=== PATIENT | male | born 1950 | race Caucasian/White ===

== ENCOUNTER 2019-05-23 19:43 | Emergency (ER) | payer OTHER, MEDICARE ==
[2019-05-23 19:52] VITALS: BP 135/66; PULSE 75; TEMP 97.6; BMI 36.6
[2019-05-23 23:16] LABS: EPITHELIAL CELLS FEW /hpf
--- NOTE | 2019-05-25 08:04 | PDOC ---
Documentation entered by Akosua Dia SCRIBE, acting as scribe for Isidro Krueger MD. Isidro Krueger MD: This documentation has been prepared by the [place], SCRIBE, under my direction and personally reviewed by me in its entirety. I confirm that the documentation accurately reflects all work, treatment, procedures, and medical decision making performed by me. History of Present Illness - General Chief Complaint: Urinary Problem Stated Complaint: URINARY RETENTION History Source: Patient Exam Limitations: No Limitations - History of Present Illness Initial Comments: 05/23/19 20:41 The patient is a 68-year-old male with a past medical history significant for HTN, enlarged prostate, borderline DM, disc herniation (on Oxycodone), s/p bilateral knee surgery (05/04) who presents to the emergency department with urinary retention. The patient is s/p bilateral knee surgery on 05/04. The patient reports he left the hospital with a urinary catheter in, which was removed earlier today at 10:30 am at a urologist's office (patient isn't sure of the doctor's name). The patient reports since conteh removal, he hasn't been able to urinate. The patient reports he's been drinking a lot of water and reports some dribbling and abdominal distention. Allergies: Sulfa Social history: Former smoker. Surgical history: Cholecystectomy (May 2018). Family history: Mom: [place] and Brother: [place] (age 39). PCP: Dr. Linnea Owens Past History - Past Medical History Allergies/Adverse Reactions: Allergies Allergy/AdvReac Type Severity Reaction Status Date / Time Sulfa (Sulfonamide Allergy Intermediate Itching Verified 05/23/19 19:46 Antibiotics) Home Medications: Ambulatory Orders Atenolol [Tenormin] 50 mg PO DAILY 11/08/18 Cholecalciferol (Vitamin D3) [Vitamin D3 -] 10,000 units PO DAILY 11/08/18 Furosemide [Lasix -] 40 mg PO DAILY 11/08/18 Lisinopril [Prinivil] 10 500s OD DAILY 11/08/18 Multivitamin [Multiple Vitamins] 1 tab PO DAILY 11/08/18 [place]-3/Dha/Epa/Fish Oil [[place] 3 500 Softgel] 2 tab PO DAILY 11/08/18 Oxycodone HCl/Acetaminophen [Oxycodone-Acetaminophen 10-325] 1 tab PO Q8H 11/08/18 Anemia: No Asthma: No Cancer: No Cardiac Disorders: No CVA: No COPD: No CHF: No Dementia: No Diabetes: No GI Disorders: No Disorders: No HTN: Yes Hypercholesterolemia: Yes Liver Disease: No Seizures: No Thyroid Disease: No - Psycho Social/Smoking Cessation Hx Smoking History: Former smoker Have you smoked in the past 12 months: No Review of Systems - Review of Systems Able to Perform ROS?: Yes Comments:: 05/23/19 20:42 CONSTITUTIONAL: Absent: fever, no chills, no fatigue EYES: Absent: visual changes ENT: Absent: ear pain, no sore throat CARDIOVASCULAR: Absent: chest pain, no palpitations RESPIRATORY: Absent: cough, no SOB GI: Absent: abdominal pain, no nausea, no vomiting, no constipation, no diarrhea GENITOURINARY:+Urinary retention. Absent: dysuria, no frequency, no hematuria MUSKULOSKELETAL: Absent: back pain, no arthralgia, no myalgia SKIN: Absent: rash NEURO: Absent: headache *Physical Exam - Physical Exam 05/23/19 20:42 GENERAL: Well-appearing, well-nourished. No apparent distress. HEENT: Normocephalic, atraumatic. PERRL, EOM intact. CARDIOVASCULAR: Normal S1, S2. Regular rate and rhythm. PULMONARY: Clear to auscultation bilaterally. ABDOMEN: +suprapubic tenderness without guarding or rebound, distended bladder to the umbilicus by percussion, no urethral lesion or inflammation. Soft, non-distended, no other tenderness.. EXTREMITIES: Normal ROM in all four extremities. No gross deformities. SKIN: Warm, dry. No rash NEUROLOGICAL: No focal neurological deficits. 05/25/19 08:02 Medical Decision Making - Medical Decision Making 05/25/19 08:03 Procedure note: Insertion of Conteh catheter A 16-gauge Conteh was passed without difficulty, over 1000 cc of clear urine was obtained. Patient symptoms were resolved. He felt much more comfortable, no residual pain. Abdomen was soft and nontender. Bladder was decompressed by percussion. Patient was discharged after instructions on care of his Conteh and will follow- up with his urologist tomorrow. Fully ambulatory and without pain or other discomfort Discharge - Discharge Information Problems reviewed: Yes Clinical Impression/Diagnosis: Urinary retention Condition: Improved Disposition: HOME - Admission No - Follow up/Referral Referrals: Bandar Owens MD [Primary Care Provider] - - Patient Discharge Instructions Patient Printed Discharge Instructions: How to Care for Your Conteh Catheter -- Male Additional Instructions: See your urologist for follow-up within 3 days. Catheter care as directed. Return to ER immediately if there is fever, abdominal or back pain. - Post Discharge Activity
== END 2019-05-23 21:26 | disposition home or self-care (01) ==
LOC: SUPCPDRO 19:43 → FER 19:43
PROC: 0T9B70Z Drainage of Bladder with Drainage Device, Via Natural or Artificial Opening (ICD-10-PCS; principal; 2019-05-23)
DX: R33.9 Retention of urine, unspecified (principal); R10.30 Lower abdominal pain, unspecified; Z88.2 Allergy status to sulfonamides; Z87.891 Personal history of nicotine dependence
CPT/HCPCS: 81003; 81015; 99283-25

== ENCOUNTER 2019-12-16 02:47 | Emergency (ER) | payer OTHER, MEDICARE ==
[2019-12-16 02:55] VITALS: BP 125/82; PULSE 83; TEMP 97.7; BMI 36.8
--- NOTE | 2019-12-16 03:00 | PDOC ---
History of Present Illness - General Chief Complaint: Laceration Stated Complaint: HEAD LAC Time Seen by Provider: 12/16/19 02:50 - History of Present Illness Initial Comments: 12/16/19 04:02 This 69-year-old man with a past medical history significant for HTN, enlarged prostate, borderline DM, disc herniation (on Oxycodone), s/p bilateral knee surgery (05/04/2019) presents with head injury sustained just prior to presentation. Patient states that he was waxing his car in his garage when he fell asleep in a chair. When he arose to wipe off the wax, he did not realize his legs had "fallen asleep" and he fell striking left side of his head against a shelf. He did not lose consciousness but he fell to the floor, falling onto a pile of towels (stating that his left shoulder absorbed most of the impact). He was able to get up on his own. He sustained to open wounds of the scalp. He is complaining of generalized headache and neck pain. He has no nausea/vomiting, difficulty with vision or balance; there has been no extremity weakness or facial droop. He is able to speak clearly and has had no word recall issues. Patient is unsure when his last tetanus prophylaxis was given Medications as noted below Allergy: Sulfa Past History - Medical History Allergies/Adverse Reactions: Allergies Allergy/AdvReac Type Severity Reaction Status Date / Time Sulfa (Sulfonamide Allergy Intermediate Itching Verified 05/23/19 19:46 Antibiotics) Home Medications: Ambulatory Orders Atenolol [Tenormin] 50 mg PO DAILY 11/08/18 Cholecalciferol (Vitamin D3) [Vitamin D3 -] 10,000 units PO DAILY 11/08/18 Furosemide [Lasix -] 40 mg PO DAILY 11/08/18 Lisinopril [Prinivil] 10 500s OD DAILY 11/08/18 Multivitamin [Multiple Vitamins] 1 tab PO DAILY 11/08/18 [place]-3/Dha/Epa/Fish Oil [[place] 3 500 Softgel] 2 tab PO DAILY 11/08/18 Oxycodone HCl/Acetaminophen [Oxycodone-Acetaminophen 10-325] 1 tab PO Q8H 11/08/18 Anemia: No Asthma: No Cancer: No Cardiac Disorders: No CVA: No COPD: No CHF: No Dementia: No Diabetes: No GI Disorders: No Disorders: No HTN: Yes Hypercholesterolemia: Yes Liver Disease: No Seizures: No Thyroid Disease: No - Surgical History Cholecystectomy: Yes - Psycho-Social/Smoking History Smoking History: Never smoked Have you smoked in the past 12 months: No If you are a former smoker, when did you quit?: 2 YEARS *Physical Exam - Vital Signs Last Vital Signs Temp Pulse Resp BP Pulse Ox 97.7 F 83 16 125/82 100 12/16/19 02:49 12/16/19 02:49 12/16/19 02:49 12/16/19 02:49 12/16/19 02:49 - Physical Exam GENERAL: Adult male, alert and oriented x3, no acute distress HEAD: Tender, erythematous, mildly edematous areas of the left frontotemporal scalp Nonbleeding, shallow flap type laceration, 3 cm left temporal scalp Nonbleeding partial skin avulsion, 2 cm mid upper forehead EYES: PERRLA, EOMI, pupils equal, 2 mm and sluggishly reactive sclera anicteric, conjunctiva clear. ENT: Ears normal, no hemotympanum, no hurst sign, nares patent, oropharynx clear without exudates. Dry mucous membranes. NECK: Normal range of motion, supple without lymphadenopathy, JVD, or masses. Moderately tender midline throughout LUNGS: Breath sounds equal, clear to auscultation bilaterally. No wheezes, and no crackles. HEART:Regular rate and rhythm, normal S1 and S2 without murmur, rub or gallop. ABDOMEN:.normal bowel sounds No guarding,tenderness or rebound.No masses No distention. EXTREMITIES: Normal range of motion, no edema. No clubbing or cyanosis. No erythema, or tenderness. NEUROLOGICAL: Cranial nerves II through XII grossly intact. Normal speech. No focal neurological deficits. MUSCULOSKELETAL: Back non-tender to palpation, no CVA tenderness SKIN: Warm, Dry, normal turgor, no rashes or lesions noted. Medical Decision Making - Medical Decision Making Scalp abrasions/shallow lacerations cleansed using sterile normal saline. Wounds covered with bacitracin ointment Noncontrast head CT and noncontrast cervical spine CT ordered to evaluate for acute injury. Preliminary interpretation by Imaging installation drafter: 1-noncontrast head CT: No evidence of fracture; no evidence of intracranial bleeding, contusions or other acute injury 2-cervical spine CT: No evidence of fracture or dislocation of vertebral body; incidental finding of right thyroid nodule Results discussed with the patient. He has been advised to avoid strenuous activity for the next 24 hours and to keep his head elevated as much as possible. She use Tylenol as needed for pain for the first 24 hours; after that, he can use NSAIDs as well as Tylenol. The patient should use Neosporin or bacitracin ointment to the scalp wounds twice a day for the next 5 days. Note was made of the incidental finding of the right thyroid nodule. No previous history of thyroid mass in this patient or in his family. He has been strongly advised to follow-up with his PMD, within the next 5 days. Copy of the preliminary reports have been given to the patient He should return to the emergency room if he has persistent severe headache or if he develops nausea/vomiting or acute neurologic deficit Discharge - Discharge Information Problems reviewed: Yes Clinical Impression/Diagnosis: Thyroid nodule Scalp contusion Qualifiers: Encounter type: initial encounter Qualified Code(s): S00.03XA - Contusion of scalp, initial encounter Scalp abrasion Qualifiers: Encounter type: initial encounter Qualified Code(s): S00.01XA - Abrasion of scalp, initial encounter Neck strain Qualifiers: Encounter type: initial encounter Qualified Code(s): S16.1XXA - Strain of muscle, fascia and tendon at neck level, initial encounter Condition: Stable Disposition: HOME - Follow up/Referral Referrals: Bandar Owens MD [Primary Care Provider] - - Patient Discharge Instructions Patient Printed Discharge Instructions: Closed Head Injury Additional Instructions: Keep head elevated as much as possible over the next few days Bacitracin/Neosporin ointment to scalp wounds twice daily for the next 5 days Tylenol for pain for the next 24 hours then can use Motrin or Aleve as well as Tylenol No strenuous activity for the next 24 hours Return to ER if you have severe, persistent headache or experience nausea/vomiting Follow-up with Dr. Owens within the next 3 to 4 days - Post Discharge Activity
[2019-12-16] MEDS ORDERED: DIPHTH,PERTUSS(ACELL),TET 0.5 ML DISP.SYRIN IM ONE (03:38)
== END 2019-12-16 05:39 | disposition home or self-care (01) ==
LOC: FER 02:47
PROC: 3E0233Z Introduction of Anti-inflammatory into Muscle, Percutaneous Approach (ICD-10-PCS; principal; 2019-12-16)
DX: S00.03XA Contusion of scalp, initial encounter (principal); S00.01XA Abrasion of scalp, initial encounter; S16.1XXA Strain of muscle, fascia and tendon at neck level, initial encounter
CPT/HCPCS: 70450-TC; 72125-TC; 90715; 99284-25

== ENCOUNTER 2020-01-30 08:59 | Day surgery (SDC) | payer OTHER, MEDICARE ==
[2020-01-30] MEDS: TROPICAMIDE 1% OPHTH SOLN 15 ML BOTTLE ONE ×3 (09:50→10:00)
[2020-01-30] MEDS: CIPROFLOXACIN 0.3% EYE DROPS 5 ML BOTTLE ONE ×3 (09:50→10:00)
[2020-01-30] MEDS: CYCLOPENTOLATE 2% OPHTH SOLN 2 ML BOTTLE ONE ×3 (09:50→10:00)
[2020-01-30] MEDS: PHENYLEPHRINE 2.5% OPHTH SOLN 15 ML BOTTLE ONE ×3 (09:50→10:00)
[2020-01-30 09:52] VITALS: BMI 38.0
[2020-01-30] MEDS ORDERED: CARBACHOL 0.01% INTRA-OCULAR 1.5 ML VIAL ONE (11:20)
[2020-01-30] MEDS ORDERED: TETRACAINE 0.5% OPHTH SOLN 2 ML BOTTLE ONE (11:20)
[2020-01-30] MEDS ORDERED: BSS (NA/CA/MG/K) BALANCED SALT SOLUTION OPHTH SOLN 15 ML BOTTLE ONE (11:20)
[2020-01-30] MEDS ORDERED: NEO/POLYMYX B SULF/DEXAMETH OPHTHALMIC 5ML BOTTLE ONE (11:20)
[2020-01-30] MEDS ORDERED: LIDOCAINE 1% P/F 10 MG/ML VIAL ONE (11:20)
[2020-01-30] MEDS ORDERED: MIDAZOLAM HCL 2 MG/2 ML SINGLE DOSE VIAL ONE (11:30)
[2020-01-30 13:04] VITALS: TEMP 97.8
[2020-01-30 13:06] VITALS: BP 114/63; PULSE 64
== END 2020-01-30 12:40 | disposition home or self-care (01) ==
LOC: FASU 08:59
PROVIDERS: ATTEND Ophthalmology
PROC: 08RJ3JZ Replacement of Right Lens with Synthetic Substitute, Percutaneous Approach (ICD-10-PCS; principal; 2020-01-30 11:38)
DX: H26.8 Other specified cataract (principal)

== ENCOUNTER 2020-02-13 08:06 | Day surgery (SDC) | payer OTHER, MEDICARE ==
[2020-02-11 15:53] VITALS: BMI 38.0
[2020-02-13] MEDS ORDERED: LIDOCAINE 1% P/F 10 MG/ML VIAL ONE (08:28)
[2020-02-13] MEDS ORDERED: PHENYLEPHRINE/KETOROLAC 4 ML VIAL IO ONE (08:28)
[2020-02-13] MEDS ORDERED: TETRACAINE 0.5% OPHTH SOLN 2 ML BOTTLE ONE (08:29)
[2020-02-13] MEDS ORDERED: NEO/POLYMYX B SULF/DEXAMETH OPHTHALMIC 5ML BOTTLE ONE (08:29)
[2020-02-13] MEDS ORDERED: CARBACHOL 0.01% INTRA-OCULAR 1.5 ML VIAL ONE (08:29)
[2020-02-13] MEDS ORDERED: BSS (NA/CA/MG/K) BALANCED SALT SOLUTION OPHTH SOLN 15 ML BOTTLE ONE (08:29)
[2020-02-13] MEDS ORDERED: TRYPAN BLUE 0.5 ML DISP.SYRIN ONE (08:29)
[2020-02-13] MEDS: CYCLOPENTOLATE 2% OPHTH SOLN 2 ML BOTTLE ONE ×3 (08:40→08:50)
[2020-02-13] MEDS: PHENYLEPHRINE 2.5% OPHTH SOLN 15 ML BOTTLE ONE ×3 (08:40→08:50)
[2020-02-13] MEDS: CIPROFLOXACIN 0.3% EYE DROPS 5 ML BOTTLE ONE ×3 (08:40→08:50)
[2020-02-13] MEDS: TROPICAMIDE 1% OPHTH SOLN 15 ML BOTTLE ONE ×3 (08:40→08:50)
[2020-02-13 11:22] VITALS: TEMP 97.8
[2020-02-13 11:25] VITALS: BP 112/71; PULSE 62
== END 2020-02-13 10:55 | disposition home or self-care (01) ==
LOC: FASU 08:06
PROVIDERS: ATTEND Ophthalmology
PROC: 08RK3JZ Replacement of Left Lens with Synthetic Substitute, Percutaneous Approach (ICD-10-PCS; principal; 2020-02-13 10:01)
DX: H26.8 Other specified cataract (principal)
CPT/HCPCS: J1097